=== PATIENT | male | born 1980 | race Caucasian/White ===

== ENCOUNTER 2023-08-19 01:08 | Day surgery (SDC) | payer BC, SELFPAY ==
[2023-08-04 09:32] VITALS: BMI 29.4
[2023-08-19 11:43] VITALS: BP 127/76; PULSE 91; RESP 17; TEMP 36.6; O2SAT 98; BMI 27.6
--- NOTE | 2023-08-19 11:50 | P.PNAN_ITS ---
Anes - Initial Pre Proc Eval Procedure: Operation Date: 08/19/23 13:00 Proposed Procedures p Esophagogastroduodenoscopy&Screen Colon - Phu Tellez MD Date/Time: 08/19/23 11:50 Surgeon: Phu Tellez MD Pre Op Diagnosis: neoplasm screening, epigastric pain, nausea with v Patient Data Age: 43 Gender: M Height: 1.91 m Weight: 100.3 kg Last Vital Signs Temp 97.8 F 08/19/23 11:43 Pulse 91 08/19/23 11:43 Resp 17 08/19/23 11:43 BP 127/76 08/19/23 11:43 Pulse Ox 98 08/19/23 11:43 O2 Del Method Room Air 08/19/23 11:43 Allergies Allergy/AdvReac Type Severity Reaction Status Date / Time No Known Allergies Allergy Verified 08/19/23 11:42 Home Medications Medication Instructions Recorded Confirmed Type famotidine 20 mg tablet 20 mg PO DAILY 06/24/23 08/19/23 History pantoprazole 40 mg tablet,delayed 40 mg PO BID #60 tabs 06/24/23 08/19/23 Rx release tramadol 50 mg tablet 50 mg PO Q6H PRN Pain 06/24/23 08/19/23 History celecoxib 100 mg capsule 100 mg PO DAILY 08/04/23 08/19/23 History Patient hx anesthesia problems: none Family hx anesthesia problems: none Results Review: All pre-operative results and documents have been reviewed as part of the pre- operative evaluation. [facility] Past Medical History Medical History (Updated 06/24/23 @ 13:21 by Katherin Cervantes APRN) Bilateral carpal tunnel syndrome Surgical History Surgical History (Updated 06/24/23 @ 13:21 by Katherin Cervantes APRN) H/O discectomy Hx laparoscopic cholecystectomy Hx of tonsillectomy Social History Social History Smoking status: Current every day smoker Tobacco type: cigarettes Substance use: current Substance use type: marijuana Living arrangements: with family Spiritual care concerns: No Anes - Eval Final PreProcedure Day of Procedure 08/19/23 11:50 Patient weight: normal Heart: regular rate and rhythm Lungs: clear to auscultation Airway: Mallampati scale class II Neurological: alert and oriented Last oral intake: >/= 8 hours ASA classification: II Emergent: no Anesthetic plan: proceed Anesthesia type and monitoring: general GIVS and standard monitoring Results Review: All pre-operative results and documents have been reviewed as part of the pre- operative evaluation. Informed Consent: The patient's anesthetic plan and its attendant risks and benefits were discussed with the patient/family/POA. Questions were solicited and answers provided to the satisfaction of the patient/family/POA.
--- NOTE | 2023-08-19 11:55 | PM.HPGS ---
History of Present Illness History of Present Illness Consent: Risks, benefits, and alternatives have been discussed and questions answered. Patient agrees to proceed with procedure. Chief complaint: neoplasm screening, epigastric pain, nausea with v Narrative: Jonas Santos is a 43 year old male with more reflux symptoms and choking but improved after switched to pantoprazole bid, also had colon polyps and due to have another colonoscopy Review of Systems Review of Systems: All systems reviewed & are unremarkable except as noted in HPI and below PMFSH Past Medical History Medical History (Updated 06/24/23 @ 13:21 by Katherin Cervantes APRN) Bilateral carpal tunnel syndrome Surgical History Surgical History (Updated 06/24/23 @ 13:21 by Katherin Cervantes APRN) H/O discectomy Hx laparoscopic cholecystectomy Hx of tonsillectomy Social History Social History Smoking status: Current every day smoker Tobacco type: cigarettes Substance use: current Substance use type: marijuana Living arrangements: with family Spiritual care concerns: No Meds Home Medications and Allergies Home Medications Medication Instructions Recorded Confirmed Type famotidine 20 mg tablet 20 mg PO DAILY 06/24/23 08/19/23 History pantoprazole 40 mg tablet,delayed 40 mg PO BID #60 tabs 06/24/23 08/19/23 Rx release tramadol 50 mg tablet 50 mg PO Q6H PRN Pain 06/24/23 08/19/23 History celecoxib 100 mg capsule 100 mg PO DAILY 08/04/23 08/19/23 History Allergies Allergy/AdvReac Type Severity Reaction Status Date / Time No Known Allergies Allergy Verified 08/19/23 11:42 Vital Signs Vital Signs - 24 hr 08/19/23 11:43 Temperature 97.8 F Pulse Rate 91 Respiratory Rate 17 Blood Pressure 127/76 Pulse Oximetry 98 Oxygen Delivery Room Air Exam Const: General: comfortable and no acute distress HENMT: Face/Nose/Sinus: Normal nares present Eyes: General: appearance normal, both eyes and all related structures Neck: Neck: no JVD Resp: Auscultation: clear to auscultation bilaterally Cardio: Rate: regular rate Rhythm: regular rhythm GI: Inspection: non-distended GI Palp: Yes Soft to palpation Skin: General skin exam: normal color Neuro: General: gait normal Speech: normal speech Extrem: General: normal to inspection Psych: Mental Status: mental status grossly normal Assessment and Plan Assessment and plan (1) GERD (gastroesophageal reflux disease): Code(s): K21.9 - Gastro-esophageal reflux disease without esophagitis Status: Acute Assessment and Plan: egd with bx better with ppi bid (2) Hx of colonic polyp: Code(s): Z86.010 - Personal history of colonic polyps Status: Acute Assessment and Plan: colonoscopy
[2023-08-19] MEDS: LACTATED RINGERS 1,000 ML 150 ML IV CONT (11:57)
--- NOTE | 2023-08-19 12:00 | WPDANESEPPF ---
Anes - Initial Pre Proc Eval Procedure: Operation Date: 08/19/23 13:00 Proposed Procedures p Esophagogastroduodenoscopy&Screen Colon - Phu Tellez MD Date/Time: 08/19/23 12:00 Surgeon: Phu Tellez MD Pre Op Diagnosis: neoplasm screening, epigastric pain, nausea with v Patient Data Age: 43 Gender: M Height: 1.91 m Weight: 100.3 kg Last Vital Signs Temp 97.8 F 08/19/23 11:43 Pulse 91 08/19/23 11:43 Resp 17 08/19/23 11:43 BP 127/76 08/19/23 11:43 Pulse Ox 98 08/19/23 11:43 O2 Del Method Room Air 08/19/23 11:43 Allergies Allergy/AdvReac Type Severity Reaction Status Date / Time No Known Allergies Allergy Verified 08/19/23 11:42 Home Medications Medication Instructions Recorded Confirmed Type famotidine 20 mg tablet 20 mg PO DAILY 06/24/23 08/19/23 History pantoprazole 40 mg tablet,delayed 40 mg PO BID #60 tabs 06/24/23 08/19/23 Rx release tramadol 50 mg tablet 50 mg PO Q6H PRN Pain 06/24/23 08/19/23 History celecoxib 100 mg capsule 100 mg PO DAILY 08/04/23 08/19/23 History Patient hx anesthesia problems: none Family hx anesthesia problems: none Results Review: All pre-operative results and documents have been reviewed as part of the pre-operative evaluation. [facility] Past Medical History Medical History (Updated 06/24/23 @ 13:21 by Katherin Cervantes APRN) Bilateral carpal tunnel syndrome Surgical History Surgical History (Updated 06/24/23 @ 13:21 by Katherin Cervantes APRN) H/O discectomy Hx laparoscopic cholecystectomy Hx of tonsillectomy Social History Social History Smoking status: Current every day smoker Tobacco type: cigarettes Substance use: current Substance use type: marijuana Living arrangements: with family Spiritual care concerns: No Anes - Eval Final PreProcedure Day of Procedure 08/19/23 12:00 Patient weight: normal Heart: regular rate and rhythm Lungs: clear to auscultation Airway: Mallampati scale class II Neurological: alert and oriented Last oral intake: >/= 8 hours ASA classification: II Emergent: no Anesthetic plan: proceed Anesthesia type and monitoring: general GIVS and standard monitoring Results Review: All pre-operative results and documents have been reviewed as part of the pre-operative evaluation. Informed Consent: The patient's anesthetic plan and its attendant risks and benefits were discussed with the patient/family/POA. Questions were solicited and answers provided to the satisfaction of the patient/family/POA.
--- NOTE | 2023-08-19 12:22 | SUR.OPER ---
EGD: START- 121, END-1220, COLON: START-1224, END-1232
[2023-08-19 12:34] VITALS: BP 104/72; PULSE 84; RESP 17; O2SAT 97
[2023-08-19 12:44] VITALS: BP 101/64; PULSE 73; RESP 17; O2SAT 97
[2023-08-19 12:50] VITALS: BP 108/67; PULSE 67; RESP 17; O2SAT 97
== END 2023-08-19 13:15 | disposition home or self-care (01) ==
PROVIDERS: Referring Provider Nurse Practitioner; Visit Provider Internal Medicine Gastroenterology
PROC: 0DJ08ZZ Inspection of Upper Intestinal Tract, Via Natural or Artificial Opening Endoscopic (ICD-10-PCS; CPT 43235; principal; 2023-08-19 13:00)
DX: Z12.11 Encounter for screening for malignant neoplasm of colon (principal); D12.4 Benign neoplasm of descending colon; K29.50 Unspecified chronic gastritis without bleeding; K21.00 Gastro-esophageal reflux disease with esophagitis, without bleeding; K44.9 Diaphragmatic hernia without obstruction or gangrene; G56.03 Carpal tunnel syndrome, bilateral upper limbs; F17.210 Nicotine dependence, cigarettes, uncomplicated; F12.90 Cannabis use, unspecified, uncomplicated; Z79.891 Long term (current) use of opiate analgesic; Z98.890 Other specified postprocedural states; Z90.49 Acquired absence of other specified parts of digestive tract
CPT/HCPCS: 43239; 45385; 88305; J2704; J7120